=== PATIENT | female | born 1975 | race Caucasian/White ===

== ENCOUNTER 2019-10-25 13:20 | Emergency (ER) | payer BC, OTHER, SELFPAY ==
--- NOTE | ~2019-10-25 | XR_ITS ---
EXAMINATION: XR chest 2V DATE: 10/25/2019 13:49 INDICATION: Chest heaviness. TECHNIQUE: Frontal and lateral views of the chest were obtained. COMPARISON: None. FINDINGS: The chest demonstrates clear lungs without pneumonia, pleural effusion, or pneumothorax. Th e heart size is normal. IMPRESSION: 1. No acute cardiopulmonary disease. Reviewed, dictated and finalized at location A.
--- NOTE | 2019-10-25 13:24 | ECG_ITS ---
Measurements Intervals [place] Rate: 80 P: 51 [place]: 158 QRS: -4 QRSD: 97 T: 27 QT: 369 QTc: 427 Interpretive Statements SINUS RHYTHM BASELINE ARTIFACT- II, III, AVL NORMAL ECG Electronically Signed On 10-25-2019 14:04:28 CDT by Jesus Hudson D.O.
[2019-10-25 13:29] VITALS: BP 131/88; PULSE 70; RESP 16; TEMP 37; O2SAT 100
[2019-10-25 13:40] LABS: Basophils Percent Auto 0.7 % (0.2-1.2); Eosinophils Absolute Auto 0.1 K/mm3 (0-0.3); Eosinophils Percent Auto 1.2 % (0-4.4); Hematocrit 41.8 % (37.0-47.0); Hemoglobin 13.5 g/dL (12.0-15.0); Immature Granulocyte Absolute 0.02 K/mm3 (0.00-0.031); Immature Granulocyte Percent A 0.3 % (0-0.5); Lymphocytes Absolute Auto 1.17 K/mm3 (0.9-3.2); Lymphocytes Percent Auto 19.9 % (18.3-44.2); Mean Corpuscular HGB Conc 32.3 g/dl (32-36); Mean Corpuscular Hemoglobin 30.3 pg (26-34); Mean Corpuscular Volume 93.7 fl (80-100); Mean Platelet Volume 10.9 fl (7.4-10.4); Monocytes Absolute Auto 0.3 K/mm3 (0.1-0.6); Monocytes Percent Auto 5.4 % (2.6-8.5); Neutrophils Absolute Auto 4.3 K/mm3 (1.3-6.7); Neutrophils Percent Auto 72.5 % (45.5-73.1); Platelet Count Result 223 k/mm3 (150-375); Red Blood Count 4.46 M/mm3 (4.2-5.4); Red Cell Distribution Width 12.2 % (11.5-14.5); White Blood Count 5.9 K/mm3 (4.5-10.0)
[2019-10-25 13:52] LABS: INR 0.9; Partial Thromboplastin Time 28.6 SECONDS (22.3-36.8); Prothrombin Time 12.2 Seconds (11.1-14.7)
[2019-10-25 13:53] LABS: Blood Urea Nitrogen 14 mg/dL (7-17); Calcium 8.7 mg/dL (8.4-10.2); Carbon Dioxide 24 mmol/L (22-30); Chloride 108 mmol/L (98-107); Estimated CRCL calculation 106 ml/min; Estimated Glomerular Filt Rate > 60; Glucose 93 mg/dL (65-105); Potassium 4.2 mmol/L (3.4-5.0); Sodium 140 mmol/L (137-145)
[2019-10-25 14:05] LABS: Troponin I < 0.012 ng/mL (0.000-0.034)
[2019-10-25 15:36] VITALS: BP 124/78; PULSE 82; RESP 17; TEMP 36.4; O2SAT 97
--- NOTE | 2019-10-25 17:11 | ED.CHESTPAIN ---
HPI - Chest Pain General Chief Complaint: Chest Pain Stated Complaint: Chest heaviness Time Seen by Provider: 10/25/19 17:11 Source: patient and RN notes reviewed Mode of arrival: other Limitations: no limitations History of Present Illness HPI narrative: Pt is a 44 y/o female who presents to the ED with c/o chest heaviness that began yesterday evening. She states that she feels like someone is sitting on her chest. Pt states that yesterday she felt flush, dizzy, and mild shakiness. Pt states that she went to bed, but she notes that she woke up with the same sx. She notes that she went to work and then began to feel nauseous. Pt's nausea resolved after taking an OTC antiemetic tablet. Pt denies being around any sick contacts, any recent foreign travel, and any new stress. Pt also reports having the urge to cough, but not being able to cough. Pt denies SOB, fever, and chills. complaint: chest heaviness Onset (ago): day(s) (1) Timing of current episode: still present Onset: during rest Pain location: other (generalized) Quality: heaviness Associated symptoms: nausea (resolved), cough (urgency, but cannot cough) and other (mild dizziness, mild shakiness) Related Data Home Medications Medication Instructions Recorded Confirmed bupropion HCl mg PO 10/25/19 citalopram mg 10/25/19 folic acid 10/25/19 hydroxychloroquine 10/25/19 naproxen 10/25/19 sumatriptan succinate mg PO 10/25/19 Allergies Allergy/AdvReac Type Severity Reaction Status Date / Time Penicillins Allergy Intermediate Swelling Verified 10/25/19 17:13 Review of Systems Review of Systems: All systems reviewed & are unremarkable except as noted in HPI and below Constitutional: Constitutional: Denies chills, Denies fever(s) and Reports other (mild shakiness) Cardiovascular: Cardiovascular: Reports other (chest heaviness) Respiratory: Respiratory: Reports cough (urgency, but cannot cough) and Denies dyspnea Gastrointestinal: Gastrointestinal: Reports nausea (resolved) Neurologic: Reports dizziness (mild) PMFSH Past Medical History Medical History (Updated 10/25/19 @ 18:37 by Hanna Lim MD) Depression Migraines Rheumatoid arthritis Surgical History Surgical History (Updated 10/25/19 @ 17:24 by Sylvia Leung) Surgical history unknown Social History Social History (Updated 10/25/19 @ 17:23 by Sylvia Leung) Smoking status: Never smoker Alcohol intake: current Gender identity (if verbalized by the patient): Female Exam Narrative: Exam Narrative: General appearance: Well-developed, well-nourished Skin: Normal color Head: Normocephalic, nontraumatic Eyes: Clear conjunctiva ENT: Oropharynx normal, ears normal, nose normal Neck: Supple, nontender Chest and respiratory: Airway patent, no respiratory distress, no accessory muscle use Heart: Regular rate/rhythm Abdomen: Soft, nontender, no organomegaly, quiet bowel sounds Vascular: Normal peripheral pulses, normal capillary refill. Musculoskeletal: Normal range of motion, nontender back Neurologic: Alert and oriented ?3, [employer] is normal as tested, no gross motor deficit Course Course Emergency Course: Resolved Vital Signs Vital signs: Vital Signs Temperature 37.0 C 10/25/19 13:29 Pulse Rate 70 10/25/19 13:29 Respiratory Rate 16 10/25/19 13:29 Blood Pressure 131/88 10/25/19 13:29 Pulse Oximetry 100 10/25/19 13:29 Temperature 36.4 C L 10/25/19 15:36 Pulse Rate 84 10/25/19 17:19 Respiratory Rate 18 10/25/19 17:19 Blood Pressure 126/82 10/25/19 17:19 Pulse Oximetry 100 10/25/19 17:19 MDM - Chest Pain MDM Narrative Medical decision making narrative
[2019-10-25 17:16] LABS: Troponin I < 0.012 ng/mL (0.000-0.034)
[2019-10-25 17:19] VITALS: BP 126/82; PULSE 84; RESP 18; O2SAT 100
--- NOTE | 2019-10-25 17:22 | PC.NURSE ---
present and states do not give asa at this time
[2019-10-25 17:58] LABS: Alveolar/Arterial O2 Gradient 29.7 mmHg; Base Excess ABG -3.2 mEq/l (+/-2.0); Fractional Inspired Oxygen 21 %; HCO3 ABG 15.7 mEq/l (22.0-26.0); Oxygen Saturation ABG 98.5 % (95.0-100.0); Oxyhemoglobin 97.9 % THb (90.0-100.0); PO2 ABG 99.9 mmHg (80.0-100.0); PO2 FiO2 Ratio Arterial Blood 4.76 %; Total Hemoglobin 13.7 g/dL (12.0-18.0)
[2019-10-25 18:00] LABS: Device ROOM AIR; PCO2 ABG 16.8 mmHg (35.0-45.0); Site Drawn RIGHT BRACHIAL; pH ABG 7.588 (7.350-7.450)
[2019-10-25 19:14] VITALS: BP 137/83; PULSE 83; RESP 18; O2SAT 100
== END 2019-10-25 19:29 | disposition home or self-care (01) ==
PROVIDERS: Emergency Medicine; Emergency Provider Emergency Medicine
DX: F45.8 Other somatoform disorders (principal); M06.9 Rheumatoid arthritis, unspecified; F32.9 Major depressive disorder, single episode, unspecified
CPT/HCPCS: 36415; 36600; 71046; 80048; 82805; 84484; 85025; 85610; 85730; 93005; 99284; A9270

== ENCOUNTER 2022-03-11 08:01 | Outpatient (CLI) | payer BC, OTHER, SELFPAY ==
[2022-03-11 08:28] LABS: Hematocrit 40.5 % (37.0-47.0); Hemoglobin 13.1 g/dL (12.0-15.0)
== END 2022-03-11 08:02 | disposition home or self-care (01) ==
PROVIDERS: PCP Physician Assistant; Visit Provider Student in an Organized Health Care Education/Training Program
DX: N92.6 Irregular menstruation, unspecified (principal); Z01.818 Encounter for other preprocedural examination
CPT/HCPCS: 36415; 85014; 85018

== ENCOUNTER 2022-03-13 00:51 | Day surgery (SDC) | payer BC, OTHER, SELFPAY ==
[2022-03-04 14:56] VITALS: BMI 31.6
--- NOTE | 2022-03-04 15:02 | PC.NURSE ---
Report to the Outpatient Waiting Room, entrance under the green pavilion located off [facility], at time _0600_ on date _[id number]_. OR Time: _729_. - You and your visitor will be asked a series of questions to screen for COVID 19 for your protection. - Only one visitor is allowed at this time. - The patient visitor is requested to leave or wait in car when not with patient. - A mask is required within the hospital. Patients may have clear liquids (water, carbonated beverages, clear teas, apple juice) until 3 hours prior to surgery with a maximum of 20 ounces. - No food from midnight until time of surgery Take the following medications with a SIP of water the morning of surgery: __Bupropion, Hydroxychloroquine, and Leflunomide. Medications to discontinue per physician Date to take last dose Please no make-up, nail nigerian, hairspray, perfume, deodorant, or body powder the day of surgery. No jewelry (including any body piercings) or valuables the day of surgery, leave them at home. Please take a shower or bath the night before, or the morning of, surgery with an antibacterial soap. Wear comfortable, loose fitting clothing. - Jewelry must be removed prior to entering the operating room. Rings and piercings that are not removed may be cut off. - The hospital will not accept responsibility for valuables. - Please leave all valuables, including medications, at home the day of surgery. If you are going home after surgery, a licensed commercial truck driver must drive you home. - NO public transportation without another adult. - We recommend that an adult stay with you for 24 hours following discharge. - We also recommend that you do not drive, make important decision, drink alcoholic beverages, or take any drugs that were not prescribed by your health care provider for at least 24 hours after your discharge time. Follow any additional instructions given to you from your surgeon. If you or anyone in your household have experienced Covid symptoms in the past week, please notify your surgeon or the nurse liaison at the phone number below for possible testing. Telephone instructions given to _Patient__and asked if any additional questions and then verbalized understanding. Patient advised to call surgeon office or pre surgery nurse liaison [phone] if any additional questions.
[2022-03-13] VITALS (7 sets, daily range): BP systolic 113–145; BP diastolic 60–86; PULSE 50–86; RESP 14–20; TEMP 36.3; O2SAT 99–100
[2022-03-13] MEDS: ACETAMINOPHEN 500 MG TABLET 1000 MG PO (06:28)
--- NOTE | 2022-03-13 06:32 | WPDANESEPPF ---
Anes - Initial Pre Proc Eval Procedure: Operation Date: 03/13/22 07:30 Proposed Procedures p Hysteroscopy Dilation and Curettage with Micaela Endometrial Ablation - Heron Clark MD Date/Time: 03/13/22 06:32 Surgeon: Heron Clark MD Pre Op Diagnosis: irregular bleeding Patient Data Age: 46 Gender: F Height: 1.78 m Weight: 100 kg Allergies Allergy/AdvReac Type Severity Reaction Status Date / Time Penicillins Allergy Intermediate Swelling Verified 03/13/22 06:33 Home Medications Medication Instructions Recorded Confirmed Type bupropion HCl 150 mg 24 hr tablet, 150 mg PO QAM 10/25/19 03/04/22 History extended release hydroxychloroquine 200 mg tablet 200 mg PO BID 10/25/19 03/04/22 History naproxen 500 mg tablet 500 mg PO BID PRN Pain 10/25/19 03/04/22 History sumatriptan succinate 100 mg tablet 100 mg PO DAILY PRN Migraine 10/25/19 03/04/22 History Headache clonazepam 0.5 mg tablet 0.5 mg PO BID PRN Anxiety 03/04/22 03/04/22 History leflunomide 20 mg tablet 20 mg PO QAM 03/04/22 03/04/22 History Patient hx anesthesia problems: none Family hx anesthesia problems: none Results Review: All pre-operative results and documents have been reviewed as part of the pre-operative evaluation. [facility] Past Medical History Medical History Depression Migraines Rheumatoid arthritis Surgical History Surgical History (Updated 03/13/22 @ 06:35 by Des Calixto MD) History of shoulder surgery Hx of breast reduction, elective Hx of tonsillectomy Social History Social History Smoking status: Never smoker Alcohol intake: current Drinks per week: 1 Living arrangements: with family Gender identity (if verbalized by the patient): Female Spiritual care concerns: No Anes - Eval Final PreProcedure Day of Procedure 03/13/22 06:32 Patient weight: obese Heart: regular rate and rhythm Lungs: clear to auscultation Airway: Mallampati scale class II Neurological: alert and oriented Last oral intake: >/= 8 hours ASA classification: III Emergent: no Anesthetic plan: proceed Anesthesia type and monitoring: general GIVS and standard monitoring Results Review: All pre-operative results and documents have been reviewed as part of the pre-operative evaluation. Informed Consent: The patient's anesthetic plan and its attendant risks and benefits were discussed with the patient/family/POA. Questions were solicited and answers provided to the satisfaction of the patient/family/POA.
--- NOTE | 2022-03-13 07:32 | PM.IMHP ---
H&P: HPI History of Present Illness Date/Time: 03/13/22 07:32 Chief Complaint: abnormal uterine bleeding Narrative: 46 yo who presents for hysterosocpy D&C and endometrial ablation for abnormal uterine bleeding. Pt has failed medical management in the past. Review of Systems Cardiovascular: Cardiovascular: Denies chest pain, Denies leg edema, Denies palpitations, Denies dyspnea and Denies dyspnea on exertion Respiratory: Respiratory: Denies cough, Denies dyspnea and Denies dyspnea on exertion Gastrointestinal: Gastrointestinal: Denies abdominal pain, Denies constipation, Denies diarrhea, Denies nausea and Denies vomiting Genitourinary: Genitourinary: Denies hematuria, Denies urinary frequency, Denies dysuria, Denies pelvic pain, Denies urinary incontinence and Denies vaginal discharge Neurologic: Reports system reviewed and no additional complaints, except as documented Psychiatric: Psychiatric: Reports no additional psychiatric complaints Endocrine: Endocrine: Denies palpitations PMFSH Past Medical History Medical History (Updated 03/13/22 @ 07:33 by Heron Clark MD) Depression Migraines Rheumatoid arthritis Surgical History Surgical History (Updated 03/13/22 @ 06:35 by Des Calixto MD) History of shoulder surgery Hx of breast reduction, elective Hx of tonsillectomy Social History Social History Smoking status: Never smoker Alcohol intake: current Drinks per week: 1 Living arrangements: with family Gender identity (if verbalized by the patient): Female Spiritual care concerns: No Meds Home Medications and Allergies Home Medications Medication Instructions Recorded Confirmed Type bupropion HCl 150 mg 24 hr tablet, 150 mg PO QAM 10/25/19 03/13/22 History extended release hydroxychloroquine 200 mg tablet 200 mg PO BID 10/25/19 03/13/22 History naproxen 500 mg tablet 500 mg PO BID PRN Pain 10/25/19 03/13/22 History sumatriptan succinate 100 mg tablet 100 mg PO DAILY PRN Migraine 10/25/19 03/13/22 History Headache clonazepam 0.5 mg tablet 0.5 mg PO BID PRN Anxiety 03/04/22 03/13/22 History leflunomide 20 mg tablet 20 mg PO QAM 03/04/22 03/13/22 History Allergies Allergy/AdvReac Type Severity Reaction Status Date / Time Penicillins Allergy Intermediate Swelling Verified 03/13/22 06:33 Vital Signs Vital Signs - 24 hr 03/13/22 06:10 Temperature 36.3 C L Pulse Rate 86 Respiratory Rate 18 Blood Pressure 145/86 H Pulse Oximetry 100 Oxygen Delivery Room Air Exam Const: General: no acute distress Eyes: EOM: EOMs intact bilaterally Neck: Neck: supple Thyroid: thyroid normal Chest: Breast/axilla inspection: normal inspection of the breasts Breast/axilla palpation: normal palpation of the breasts, normal palpation of the axillae and no axillary lymphadenopathy Resp: Effort & Inspection: normal respiratory effort Auscultation: clear to auscultation bilaterally Cardio: Rate: regular rate Rhythm: regular rhythm GI: Inspection: non-distended GI Palp: Yes Soft to palpation, No Tenderness to palpation present (GI) and No Guarding due to palpation present (GI) Auscultation: normal bowel sounds : General: No bladder normal to palpation External Female Exam: normal external appearance Speculum Exam - Vagina: normal vaginal discharge and No vaginal bleeding Speculum Exam - Cervix: nontender Bimanual exam- vagina & uterus: No bladder normal to palpation and No Cervical tenderness present OB/external & speculum: No vaginal bleeding Skin: General skin exam: normal color and no rashes or lesions noted Neuro: Cognition (Neuro): normal cognition Speech: normal speech Extrem: General: normal to inspection and no edema Psych: Mental Status: mental status grossly normal Affect: normal affect Assessment and Plan Assessment and plan (1) Abnormal uterine bleeding (AUB): Code(s): N93.9 - Abno
--- NOTE | 2022-03-13 07:34 | WPDHPUPDATE1 ---
History and Physical Update Update Date/Time: 03/13/22 07:34 History and Physical has been reviewed, including an updated exam of the patient. There are NO changes in the patient's condition. Risks, benefits, and alternatives have been discussed and questions answered. Patient agrees to proceed with procedure.
--- NOTE | 2022-03-13 08:06 | W.PM.PROC2 ---
Procedure Note - Detailed Date of Procedure 03/13/22 Pre-op Diagnosis irregular bleeding Post-op Diagnosis Same Procedure Performed paracervical block hysteroscopy dilation & curettage endometrial ablation Surgeon Heron Clark MD Indications abnormal uterine bleeding Findings normal appearing intrauterine cavity. Normal tubal ostia bilaterally Description of Procedure Katey Tolentino presents for hysteroscopy, D&C, endometrial ablation for AUB. She was counseled as to the indications, risks, benefits, and alternatives to surgery, with the risks including bleeding, infection, damage to surrounding organs, VTE, and complications of anesthesia. Her verbal and written consent was obtained. PROCEDURE: The patient was taken to the OR and general anesthesia induced. She was prepped and draped in Marcell stirrups with support of the back and bilateral lower extremities. I/O catheterization performed of the bladder. The above findings were noted. Infiltration with 1% lidocaine at the 3 and 9 o'clock cervical positions was performed. A single tooth tenaculum was placed on the anterior lip of the cervix. The uterus sounded to 8 cm. The cervix was dilated with sequential Eda dilators. Hysteroscopy, using a normal saline medium, was performed and showed the above findings. Sharp uterine curettage was then performed and tissue placed on Telfa. The Micaela device was set to a depth of 5.5 cm. The device was inserted into the uterus and deployed. Good fit was reassured by the device indicator. The cervical balloon was insufflated to ensure a good seal. Uterine integrity test was performed by the Micaela device and was successful. The device was then activated. The entire ablation procedure lasted 120 seconds. The cervical balloon was desufflated and the device was removed from the uterus. The hysteroscope was re-introduced to ensure adequate tissue ablation. The tenaculum was removed and hemostasis was observed. The patient tolerated the procedure well. Sponge, lap, and needle counts were correct. The patient was taken to the recovery room in stable condition. Estimated Blood Loss 25 Drains No Packing No Pathology Yes (endometrial curettings ) Complications No immediate complications Condition Stable Disposition PACU
[2022-03-13] MEDS: LACTATED RINGERS 1,000 ML 30 ML IV CONT (08:10)
[2022-03-13] MEDS: oxyCODONE HCL (*CRX) 5 MG TAB IR PO (08:43)
[2022-03-13] MEDS: fentaNYL CITRATE INJ (*CRX) 100 MCG/2 ML VIAL 25 MCG IV PUSH (09:03)
[2022-03-13] MEDS: ONDANSETRON INJ 4 MG/2 ML VIAL IV PUSH (09:16)
[2022-03-13] MEDS: KETOROLAC 30 MG/ML VIAL (*BKC) IV PUSH (09:51)
== END 2022-03-13 11:00 | disposition home or self-care (01) ==
PROVIDERS: PCP Physician Assistant; Visit Provider Student in an Organized Health Care Education/Training Program
PROC: 0U5B8ZZ Destruction of Endometrium, Via Natural or Artificial Opening Endoscopic (ICD-10-PCS; CPT 58563; principal; 2022-03-13 07:30)
DX: N93.9 Abnormal uterine and vaginal bleeding, unspecified (principal); M06.9 Rheumatoid arthritis, unspecified; F32.A Depression, unspecified; E66.9 Obesity, unspecified; Z68.29 Body mass index [BMI] 29.0-29.9, adult
CPT/HCPCS: 58563; 88305; A9270; J1885; J2250; J2405; J2704; J3010; J7030; J7120

== ENCOUNTER 2022-11-19 08:39 | Emergency (ER) | payer BC, OTHER, SELFPAY ==
[2022-11-19 08:49] VITALS: BP 145/104; PULSE 97; RESP 20; TEMP 36.4; O2SAT 99
--- NOTE | 2022-11-19 09:24 | PC.NURSE ---
States she has a hx of migraines with a on and off migraine for 5 days, and is unable to keep her medication down due to n/v that has been ongoing since yesterday.
[2022-11-19 09:45] LABS: Basophils Percent Auto 0.5 % (0.2-1.2); Eosinophils Percent Auto 0.2 % (0-4.4); Hematocrit 44.5 % (37.0-47.0); Hemoglobin 14.5 g/dL (12.0-15.0); Immature Granulocyte Absolute 0.02 K/mm3 (0.00-0.031); Immature Granulocyte Percent A 0.2 % (0-0.5); Lymphocytes Absolute Auto 1.32 K/mm3 (0.9-3.2); Lymphocytes Percent Auto 16.2 % (18.3-44.2); Mean Corpuscular HGB Conc 32.6 g/dl (32-36); Mean Corpuscular Hemoglobin 29.8 pg (26-34); Mean Corpuscular Volume 91.6 fl (80-100); Mean Platelet Volume 10.1 fl (7.4-10.4); Monocytes Absolute Auto 0.4 K/mm3 (0.1-0.6); Monocytes Percent Auto 4.3 % (2.6-8.5); Neutrophils Absolute Auto 6.4 K/mm3 (1.3-6.7); Neutrophils Percent Auto 78.6 % (45.5-73.1); Platelet Count Result 236 k/mm3 (150-375); Red Blood Count 4.86 M/mm3 (4.2-5.4); Red Cell Distribution Width 12.6 % (11.5-14.5); White Blood Count 8.1 K/mm3 (4.5-10.0)
[2022-11-19 09:46] VITALS: BP 139/79; PULSE 71; RESP 15; O2SAT 100
[2022-11-19 10:15] LABS: Alanine Aminotransferase 22 U/L (6-35); Albumin Level 4.3 g/dL (3.5-5.1); Alkaline Phosphatase 98 U/L (38-126); Anion Gap 6 mmol/L (8-16); Aspartate Amino Transferase 23 U/L (14-36); Bilirubin,Total 0.7 mg/dL (0.2-1.3); Blood Urea Nitrogen 16 mg/dL (7-17); Carbon Dioxide 29 mmol/L (22-30); Chloride 104 mmol/L (98-107); Estimated CRCL calculation 107 ml/min; Estimated Glomerular Filt Rate > 60; Glucose 115 mg/dL (65-110); Lipase 37 U/L (23-300); Potassium 4.1 mmol/L (3.4-5.0); Sodium 139 mmol/L (137-145)
--- NOTE | 2022-11-19 10:24 | ED.HA ---
HPI - Headache General Chief Complaint: Headache Stated Complaint: migraine with nausea Time Seen by Provider: 11/19/22 09:53 Source: patient Mode of arrival: ambulatory Limitations: no limitations History of Present Illness HPI Narrative: Patient is a 47-year-old female, with past medical history of chronic migraines, who presents to the ED with report of a migraine headache for the last 5 days. Patient reports the pain is located in her right frontal region. She states it does feel typical of her usual migraines but she is usually able to find relief with her Imitrex. She has been taking this over the last couple days with only temporary relief. She has not tried anything else for her pain. She does not currently follow with a neurologist. She has been unable to keep down her Imitrex today due to vomiting, which prompted her presentation. Patient reports nausea, vomiting, photophobia, phonophobia, but denies vision changes, neck pain, fevers, abdominal pain, cough or cold sx's, weakness, confusion. Related Data Home Medications Medication Instructions Recorded Confirmed bupropion HCl 150 mg 24 hr tablet, 150 mg PO QAM 10/25/19 03/13/22 extended release hydroxychloroquine 200 mg tablet 200 mg PO BID 10/25/19 03/13/22 naproxen 500 mg tablet 500 mg PO BID PRN Pain 10/25/19 03/13/22 sumatriptan succinate 100 mg tablet 100 mg PO DAILY PRN Migraine 10/25/19 03/13/22 Headache clonazepam 0.5 mg tablet 0.5 mg PO BID PRN Anxiety 03/04/22 03/13/22 leflunomide 20 mg tablet 20 mg PO QAM 03/04/22 03/13/22 Allergies Allergy/AdvReac Type Severity Reaction Status Date / Time Penicillins Allergy Intermediate Swelling Verified 11/19/22 08:40 Review of Systems Review of Systems: CONSTITUTIONAL: Denies fever, chills, or sweats. EYES: See HPI. ENT: See HPI. CARDIOVASCULAR: Denies chest pain. RESPIRATORY: Denies dyspnea. GASTROINTESTINAL: See HPI. GENITOURINARY: Denies dysuria or hematuria. NEUROLOGIC: See HPI. All systems reviewed & are unremarkable except as noted in HPI and below PMFSH Past Medical History Medical History Depression Migraines Rheumatoid arthritis Surgical History Surgical History History of shoulder surgery Hx of breast reduction, elective Hx of tonsillectomy Social History Social History Smoking status: Never smoker Alcohol intake: current Drinks per week: 1 Living arrangements: with family Gender identity (if verbalized by the patient): Female Spiritual care concerns: No Exam Narrative: GENERAL: Well appearing, obese, non-toxic, in mild acute distress due to pain. HEAD: Normocephalic, atraumatic. EYES: PERRL/EOMI, conjunctivae clear bilaterally. No nystagmus. NECK: Supple. No adenopathy, no masses. No meningeal signs. RESPIRATORY: Airway patent, respirations nonlabored. Clear to auscultation bilaterally, no rales, rhonchi, wheezing. CARDIOVASCULAR: Regular rate and rhythm without murmurs, rubs, or gallops. Peripheral pulses 2+ and equal bilaterally. ABDOMINAL: Soft, nontender, nondistended, no hepatosplenomegaly. Normoactive BS. MUSCULOSKELETAL: Moves all extremities. Strength/ROM intact without gross deformities. SKIN: Warm, dry, normal color. No rashes. NEURO: A&O X3. Speech clear. Follows commands. CN II-XII grossly intact. Sensation grossly intact. Steady gait. No ataxic movements. Strength 5/5 in upper and lower extremities bilaterally. Equal planer feeder strength bilaterally. No pronator drift. PSYCHIATRIC: Appropriate mood and affect. Normal interaction. Course Vital Signs Vital signs: Vital Signs Temperature 97.6 F 11/19/22 08:49 Pulse Rate 97 11/19/22 08:49 Respiratory Rate 20 11/19/22 08:49 Blood Pressure 145/104 H 11/19/22 08:49 Pulse Oximetry 99 11/19/22 08:49 Oxygen Delivery Room A
[2022-11-19] MEDS: SODIUM CHLORIDE 0.9% IV 1,000 ML 999 ML IV CONT (10:58)
[2022-11-19] MEDS: METOCLOPRAMIDE HCL INJ 10 MG/2 ML VIAL IV PUSH (10:59)
[2022-11-19] MEDS: KETOROLAC 30 MG/ML VIAL (*BKC) IV PUSH (11:01)
[2022-11-19] MEDS: diphenhydrAMINE HCl INJ 50 MG/ML VIAL 25 MG IV PUSH (11:02)
[2022-11-19 12:17] LABS: Appearance Urine Turbid (Clear); Bacteria Urine None Seen /hpf; Bilirubin Urine Negative (Negative); Blood Urine Negative (Negative); Color Urine Yellow (Yellow); Glucose Urine UA Negative (Negative); Ketones Urine Negative (Negative); Leukocyte Esterase Ur Negative LEU/UL (Negative); Nitrate Urine Negative (Negative); Non Pathogenic Casts 0-2; Protein Urine Trace mg/dL (Negative); RBC Urine 0-2 /hpf (0-2); Specific Grav Ur 1.019 (1.001-1.035); Squamous Epithelial Cell Urine Occasional /hpf (Few); Urobilinogen Urine 0.2 mg/dL (<2.0); WBC Urine 0-5 /hpf; pH Urine >=9.0 (5.0-9.0)
[2022-11-19 12:20] LABS: Add Urine Microscopic? YES
[2022-11-19 13:44] VITALS: BP 143/78; PULSE 80; RESP 16
== END 2022-11-19 13:45 | disposition home or self-care (01) ==
PROVIDERS: General Practice; Emergency Provider Physician Assistant; PCP Physician Assistant
DX: G43.009 Migraine without aura, not intractable, without status migrainosus (principal); M06.9 Rheumatoid arthritis, unspecified; F32.A Depression, unspecified
CPT/HCPCS: 36415; 80053; 81001; 83690; 85025; 96361; 96365; 96375; 99284; J0131; J1100; J1200; J1885; J2765; J7030

== ENCOUNTER 2022-11-20 16:46 | Outpatient (CLI) | payer BC, OTHER, SELFPAY ==
--- NOTE | ~2022-11-20 | MM_ITS ---
EXAMINATION: MM screening rob BI w jose r HISTORY: Screening TECHNIQUE: Craniocaudal and mediolateral oblique 3-D tomosynthesis images were obtained and synthetic 2-D images were generated. CAD analysis was submitted and interpreted. COMPARISON: No prior mammogram is available for comparison at this institution. BREAST PARENCHYMAL COMPOSITION: There are scattered areas of fibroglandular density. FINDINGS: There is no evidence of suspicious mass, calcification, or architectural distortion to sugg est malignancy in either breast. There has been no suspicious interval change. IMPRESSION: 1. No mammographic evidence of malignancy. 2. Recommend routine screening mammography in one year. BI-RADS Category 1: Negative Reviewed, dictated and finalized at location A.
== END 2022-11-20 16:47 | disposition home or self-care (01) ==
LOC: ANHIMG 16:50
PROVIDERS: PCP Physician Assistant; Visit Provider Physician Assistant
DX: Z12.31 Encounter for screening mammogram for malignant neoplasm of breast (principal)
CPT/HCPCS: 77063; 77067

== ENCOUNTER 2023-02-21 10:59 | Outpatient (CLI) | payer BC, OTHER, SELFPAY ==
[2023-02-24 13:14] LABS: FSH 10.9 mIU/mL (***)
[2023-02-27 22:02] LABS: Estradiol, Ultrasensitive 15 pg/mL
== END 2023-02-21 11:00 | disposition home or self-care (01) ==
PROVIDERS: PCP Physician Assistant; Visit Provider Student in an Organized Health Care Education/Training Program
DX: N93.9 Abnormal uterine and vaginal bleeding, unspecified (principal)
CPT/HCPCS: 36415; 82670; 83001; 84443